=== PATIENT | male | born 1930 | race Caucasian/White ===

== ENCOUNTER 2016-08-27 08:24 | Emergency (ER) | payer MEDICAID ==
[~2016-08-27] VITALS: Ht 167.6 cm; Wt 82.0 kg
[~2016-08-27 08:24] MED LIST: ALBU18HF INHALATION; AZIT250T94 PO; LOSA50TA6 PO; NAPR-260 PO; PHEN100C PO; PRED20 PO
[2016-08-27 08:35] VITALS: Ht 167.6 cm; Wt 82.0 kg
[2016-08-27] MEDS ORDERED: TIOT18CA INHALATION (09:22)
[2016-08-27] MEDS ORDERED: METO50TA16 PO (09:22)
[2016-08-27] MEDS ORDERED: FLUT12HF2 IH (09:22)
--- NOTE | 2016-08-27 09:37 | RADRPT ---
PROCEDURE: XR Chest. CLINICAL INDICATION: Possible pneumonia TECHNIQUE: An AP view of the chest was obtained. COMPARISON: Chest x-ray dated 10/25/2015 FINDINGS: There is a right subclavian single lead pacemaker. Lung volumes are low. There is prominence of the interstitial markings. No pleural effusion or pn eumothorax is seen. The cardiomediastinal silhouette is mildly enlarged . Calcifications are seen within the aortic arch. The osseous structures demonstrate senescent changes. IMPRESSION: 1. Mild prominence of the interstitial markings, may reflect mild underlying interstitial edema or chronic lung changes. No significant interval change. 2. Low lung volumes. 3. Mild cardiomegaly and aortic atherosclerosis. 4. Right subclavian single lead pacemaker. RPTAT: HH .Nena Gary MD, Date Time Electronically viewed and signed by .Nena Gary MD, on 08/27/2016 09:36 .G/
[2016-08-27 09:38] LABS: BASOPHIL # 0.1 10^3/ul (0.0-0.1); BASOPHILS % 0.8 % (0.0-2.0); EOSINOPHILS # 0.7 10^3/ul (0.0-0.5); EOSINOPHILS % 9.6 % (0.0-7.0); HEMATOCRIT 46.3 % (42.0-52.0); HEMOGLOBIN 15.1 g/dl (14.0-18.0); LYMPHOCYTES # 1.6 10^3/ul (0.8-2.9); LYMPHOCYTES % 22.6 % (15.0-51.0); MEAN CORPUSCULAR HGB CONC 32.5 g/dl (32.0-37.0); MEAN CORPUSCULAR VOLUME 76.8 fl (82.0-101.0); MEAN PLATELET VOLUME 7.7 fl (7.4-10.4); MONOCYTE # 0.6 10^3/ul (0.3-0.9); MONOCYTES % 8.2 % (0.0-11.0); NEUTROPHIL # 4.1 10^3/ul (1.6-7.5); NEUTROPHILS % 58.8 % (39.0-77.0); PLATELET COUNT 212 10^3/UL (140-440); RED BLOOD COUNT 6.03 10^6/ul (4.70-6.10); RED CELL DISTRIBUTION WIDTH 14.9 % (11.5-14.5)
[2016-08-27 09:41] LABS: POTASSIUM 3.7 mmol/L (3.5-5.1)
[2016-08-27 09:43] LABS: CREATININE 0.92 mg/dl (0.61-1.24)
[2016-08-27 09:44] LABS: CALCIUM 8.8 mg/dl (8.4-10.2)
[2016-08-27 09:45] LABS: CONDITION 1; LH ANALYZER COMMENTS 1
[2016-08-27] MEDS ORDERED: AZIT250T94 PO (09:53)
[2016-08-27] MEDS ORDERED: OSLT75C PO (09:56)
--- NOTE | 2016-08-27 09:56 | ERD ---
ER Documentation Chief Complaint Date/Time DATE: 08/27/16 TIME: 09:54 Chief Complaint DIZZINESS;HEADACHE,SORE THROAT X3DAYS;PRODUCTIVE COUGH BROWN COLORED PHLEGM HPI 85-year-old male presents to the emergency department with his family for evaluation of a cough and congestion that he has had for approximately 3 days. Patient reports production of brownish tinged sputum but no hemoptysis. He reports no shortness of breath or fever. He reports no weight loss or night sweats. He reports a concurrent sore throat and headache. He has a nonspecific dizziness that he describes as feeling essentially sick from the cough. He has no other acute complaints at this time. ROS All systems reviewed and are negative except as per history of present illness. Medications Home Meds Active Scripts Azithromycin* (Zithromax*) 250 Mg Tablet, 250 MG PO .ZPACK DIRECTED, #6 TAB TAKE 500 MG (2 TABS) THE FIRST DAY THEN 250 MG (1 TAB) DAYS 2-5 Prov:EZRA HENDRICKSON 08/27/16 Losartan Potassium* (Losartan Potassium*) 50 Mg Tablet, 50 MG PO DAILY for 30 Days, TAB Prov:CHRISTINE JO MD 10/25/15 Albuterol Sulfate* (Ventolin HFA*) 18 Gm Hfa.aer.ad, 2 PUFF INHALATION Q4H, #1 INHALER Prov:CHRISTINE JO MD 10/25/15 Naproxen* (Naprosyn*) 500 Mg Tablet, 500 MG PO BID Y for PAIN AND/OR INFLAMMATION, #30 TAB Prov:FOX GREENFIELD MD 08/28/15 Reported Medications Salmeterol Xinaf-Fluticasone* (Advair HFA*) 115/21 Aerosol Inhaler, 2 INH IH BID , #1 INHALER 08/27/16 Metoprolol Succinate* (Toprol XL*) 50 Mg Tab.er.24h, 50 MG PO QHS, #30 TAB 08/27/16 Tiotropium [place]* (Spiriva*) 18 Mcg Cap.w.dev, 1 CAP INHALATION DAILY, #30 CAP 08/27/16 Phenytoin* Sodium Extended (Dilantin*) 100 Mg Capsule, 100 MG PO BID, CAP 08/28/15 Discontinued Scripts Prednisone (Prednisone) 20 Mg Tab, 20 MG PO DAILY for 5 Days, TAB Prov:CHRISTINE JO MD 10/25/15 Azithromycin* (Zithromax*) 250 Mg Tablet, 250 MG PO .ZPACK DIRECTED, #6 TAB TAKE 500 MG (2 TABS) THE FIRST DAY THEN 250 MG (1 TAB) DAYS 2-5 Prov:CHRISTINE JO MD 10/25/15 Allergies Allergies: Coded Allergies: No Known Allergy (Unverified , 08/27/16) PMhx/Soc History of Surgery: Yes (bypass sx 2009, 6 hip sx) Anesthesia Reaction: No Hx Neurological Disorder: Yes (epilepsy) Hx Respiratory Disorders: No Hx Cardiac Disorders: Yes (high blood pressure) Hx Psychiatric Problems: No Hx Miscellaneous Medical Probl: No Hx Alcohol Use: Yes (SOCIAL) Hx Substance Use: No Hx Tobacco Use: Yes Smoking Status: Former smoker FmHx Noncontributory for chief complaint Physical Exam Vitals Vital Signs Date Time Temp Pulse Resp B/P Pulse Ox O2 Delivery O2 Flow Rate FiO2 08/27/16 08:35 98.4 75 19 128/68 95 Physical Exam GENERAL: The patient is well developed and appropriate for usual state of health in no apparent distress HEENT: Pupils equal, round, and reactive to light. EOMI. There is no scleral icterus. NECK: C-spine is soft and supple, there is no meningismus. There is no cervical lymphadenopathy. LUNGS: Clear to auscultation bilaterally. There are no rales, wheezes or rhonchi. HEART: Regular rate and rhythm, no murmurs, clicks, rubs or gallops. Pacemaker is appreciated ABDOMEN: Soft, non-tender, non-distended. There are bowel sounds in all four quadrants. No rebound or guarding. EXTREMITIES: There is no peripheral cyanosis or edema. No focal swelling or erythema. NEURO: The patient moves all four extremities with 5/5 strength. Cranial nerves II - XII are intact. Normal gait. Alert and oriented SKIN: There is no apparent rash or petechiae. HEME/LYMPHATIC: There is no evidence of excessive bruising or lymphedema. PSYCHIATRIC: The patient does not appear anxious or depressed. Result Diagram: 08/27/16 0900 08/27/16 0900 Results 24 hrs Laboratory Tests Test 08/27/16 09:00 Anion Gap 16 Basophils # 0.110^3/ul Basophils % 0.8% Blood Morphology Comment Blood Urea Nitrogen 22mg/dl Calcium Level 8.8mg/dl Carbon Dioxide Level 29mmol/L Chloride Level 95mmol/L Creatinine 0.92mg/dl Eosinophils # 0.710^3/ul Eosinophils % 9.6% Glucose Level 96mg/dl Hematocrit 46.3% Hemoglobin 15.1g/dl Lymphocytes # 1.610^3/ul Lymphocytes % 22.6% Mean Corpuscular Hemoglobin 25.0pg Mean Corpuscular Hemoglobin Concent 32.5g/dl Mean Corpuscular Volume 76.8fl Mean Platelet Volume 7.7fl Monocytes # 0.610^3/ul Monocytes % 8.2% Neutrophils # 4.110^3/ul Neutrophils % 58.8% Nucleated Red Blood Cells # 0.010^3/ul Nucleated Red Blood Cells % 0.0/100WBC Platelet Count 96035^3/UL Potassium Level 3.7mmol/L Red Blood Count 6.0310^6/ul Red Cell Distribution Width 14.9% Sodium Level 136mmol/L White Blood Count 7.010^3/ul Procedures/MDM Patient was taken to a room, seen and evaluated. Comfort measures were initiated. Diagnostic tests were ordered and reviewed. 3 LEAD RHYTHM STRIP: Pacemaker EKG: Pacemaker rhythm with pacemaker morphology. Impression: Pacemaker RADIOLOGY: reviewed with the radiologist REEVALUATION: Patient remained neurologically normal and nonfocal. He remained him dynamically stable and steady from a respiratory standpoint MEDICAL DECISION MAKING: Elderly 85-year-old male with multiple comorbid conditions presents to the emergency department with what appears to be a viral type syndrome/bronchitis. His nonspecific dizziness seems to be unrelated to stroke or significant cardiac or significant infectious concerns. Dehydration and significant electrolyte derangement has been ruled out based on blood test. At this time, patient appears to be clinically well and appropriate for outpatient care. Departure Diagnosis: Primary Impression: Bronchitis Condition: Stable Patient Instructions: Bronchitis, Antiobiotic Treatment (Adult) Additional Instructions: See your doctor for follow-up as discussed. Take a copy of your test results, if appropriate, to this follow-up visit. See your doctor or return here if your symptoms do not improve as expected. At any time, please return to the emergency department for any change or worsening in her symptoms. EZRA HENDRICKSON Aug 27, 2016 09:56
[2016-08-27 10:09] VITALS: BP 116/67; PULSE 61; RESP 18; TEMP 98.5
== END 2016-08-27 10:10 | disposition home or self-care (01) ==
LOC: E/R 08:24
DX: J20.9 Acute bronchitis, unspecified (principal); R42 Dizziness and giddiness; Z87.891 Personal history of nicotine dependence
CPT/HCPCS: 36415; 71010; 80048; 83605; 85025; 87040; 93005; Z7502